=== PATIENT | male | born 1950 | race Caucasian/White ===

== ENCOUNTER 2018-08-04 15:03 | Emergency (ER) | payer OTHER ==
--- OUTSIDE RECORDS SUMMARY | 2018-08-04 15:19 | XMS REPORT | Continuity of Care Document ---
:1950 Author Organization Interface Problems Problem Status Onset Classification Date Comments Source Date Reported N40.1 Active 03/08/19 [place] [facility] Elevated 10/09/19 04/22/2018 [facility] prostate 18 [place] specific antigen [PSA] R97.20 - Active 09/06/19 [facility] ELEVATED 18 [place] PROSTATE SPECIFIC ANT BPH associated Active Problem 07/26/2018 Medical with nocturia Group, [facility] [place] Acute gout Resolved Problem 07/26/2018 Medical Group, [facility] [place] High blood Resolved Problem 07/26/2018 Medical pressure Group, [facility] [place] ED (<span Active Problem 07/26/2018 Medical ID="[id number] Group, 9">Confirmed</s [facility] [place] briseno>) BPH (<span Active Problem 07/26/2018 Medical ID="[id number] Group, 7">Confirmed</s [facility] [place] briseno>) Back pain, Active Problem 07/26/2018 Medical chronic Group, [facility] [place] GERD (<span Active Problem 07/26/2018 Medical ID="[id number] Group, 1">Confirmed</s [facility] [place] briseno>) Morbid obesity Active Problem 07/26/2018 Medical Group, [facility] [place] Motion sickness Active Problem 07/26/2018 Medical Group, [facility] [place] Prostatitis Active Problem 07/26/2018 Medical Group, [facility] [place] Elevated PSA Active Problem 07/26/2018 Medical Group, [facility] [place] Apnea, sleep Active Problem 07/26/2018 Medical Group, [facility] [place] Benign 04/22/2018 [facility] prostatic [place] hyperplasia without lower urinary tract symptoms Obstructive and 04/22/2018 [facility] reflux [place] uropathy, unspecified Medications Medication Details Route Status Patient Ordering Order Source Instructions Provider Date Finasteride 5 MG 5 mg=1 tab, Active Oral Tablet PO, Daily, # 2018 Medical [Proscar] 30 tab, 11 Group Refill(s), Pharmacy: [facility] Sulfamethoxazole 1 tab, PO, No 01/06/ 800 MG / BID, X 14 day, Longer 2017 Medical Trimethoprim 160 # 28 tab, 0 Active Group MG Oral Tablet Refill(s), [Bactrim] Pharmacy: [facility] Ciprofloxacin 500 500 mg=1 tab, No 10/10/ MG Oral Tablet PO, Q12H, X 3 Longer 2017 Medical [Cipro] day, # 6 tab, Active Group 0 Refill(s), Pharmacy: [facility] Sulfamethoxazole 1 tab, PO, Active 08/24/ MH 800 MG / BID, X 14 day, 2018 Medical Trimethoprim 160 # 28 tab, 0 Group MG Oral Tablet Refill(s) [Bactrim] Fish Oil PO, 0 Active Refill(s) 2016 Medical Group Vitamin B12 0 Refill(s) Active 2016 Medical Group Uloric PO, Daily, 0 Active Refill(s) 2016 Medical Group Allopurinol 0 Refill(s) Active 2016 Medical Group Celebrex PO, 0 Active Refill(s) 2016 Medical Group Allergies, Adverse Reactions, Alerts Substance Category Reaction Severity Reaction Status Date Comments Source type Reported No Known Assertion Drug Medication allergy Medical Allergies Group Immunizations Immunization Date Site Status Last Updated Comments Source Given pneumococcal Right completed [facility] 13-valent 9 Deltoid Group, vaccine [facility] [place] Results Order Results Value Reference Date Interpretation Comments Source Name Range Prostate Prostate PROCEDURE: MRI PELVIS (PROSTATE MRI) WITH AND WITHOUT IV CONTRAST 10/03/2017 AT 1115 HOURS. 10/03 - [facility] w/wo w/wo /2017 - [place] contrast contrast MRI MRI CLINICAL INDICATION : Elevated PSA. Benign prostatic hypertrophy with 2 episodes of gross hematuria. Reported several past negative biopsies. IPSS: 16/ 4. Read by: Jeromy Briggs MD Dictated Date/time: 10/03/17 16:01 Electronically Signed by: Jeromy Briggs MD 10/05/17 11:48 FINAL REPORT PSA: 4.68 ng/mL (Date: 01/31/2017); previously 6.8 (unknown date). PROSTATE BIOPSY/SURGERY?: Reported several negative biopsies. Greenlight laser procedure on June 2013. COMPARISON STUDIES: None relevant. ADMINISTERED CONTRAST: 20 cc of Dotarem intravenously. TECHNIQUE: Using a phased array coil small [id number] imaging of the prostate was performed using the following sequences; Multiplanar T1 and T2 LIZ, axial DWI SENSE / ADC (b values=0, 500 \\T\\1000) and dynamic contrast-enhanced (DCE) axial 3-D T1 weighted FFE with IV contrast. Using a large [id number], the entire pelvis to the level of the aortic bifurcation was imaged. Prostate gland segmentation with reg ion of interest time curve analysis was performed with the use of the workstation. FINDINGS: PROSTATE SIZE: 5.6 x 5.2 x 6.3 cm; VOLUME: 86 cc CENTRAL GLAND: Transitional stromal hypertrophy with multiple encapsulated BPH nodules. What is believed to represent a protruding 6 mm BPH nodule is seen arising at the right posterolateral transitiona l/peripheral zone interface approximately 8 o'clock position with moderate ADC hypointensity, mild T2 hypointensity and isointense DWI signal. Otherwise no restricted diffusion or suspicious enhancement. PERIPHERAL ZONE: Predominant T2 hyperintense signal with faint radially oriented bands of T2 hypointensity along the left posterior peripheral zone. Probably protruding 6 cm right posterolateral BPH noted into a peripheral zone as described above. ANTERIOR FIBROMUSCULAR STROMA: Unremarkable. SEMINAL VESICLES: Unremarkable. EXTRA-CAPSULAR SOFT TISSUES: Unremarkable. BLADDER: No filling defects or diverticula. Trabeculated wall. LYMPH NODES: No adenopathy. BONES: Moderate severe lumbosacral facet arthropathy and mild bilateral SI joint osteoarthritis. Variegated bone marrow signal, presumably from red marrow conversion. No destructive lesion. OTHER FINDINGS: No inguinal hernia or adenopathy. No free fluid. IMPRESSION: 1. Prostatic hypertrophy with numerous encapsulated BPH nodules and probable 6 mm protruding BPH nodule into the right posterolateral peripheral zone. 2. PI-RADS Category 3. 3. Mild chronic obstructive uropathy. 4. No adenopathy or free fluid. 5. Polyarticular degenerative change as described. __ PIRADSTM v2 assessment uses a 5 point scale based on the likelihood ( probability) that a combination of mpMRI findings on T2W, DWI, and DCE correlates with the presence of a clinically significant cancer for each lesion in the prostate gland. PIRADSTM v2 ASSESSMENT CATEGORIES: PIRADS 1 Very low (clinically significant cancer is highly unlikely to be present). PIRADS 2 Low (clinically significant cancer is unlikely to be present). PIRADS 3 Intermediate (the presence of clinically significant cancer is equivocal). PIRADS 4 High (clinically significant cancer is likely to be present). PIRADS 5 Very high (clinically significant cancer is highly likely to be present). NOTE: Assignment of a PIRADSTM v2 Assessment Category should be based on mpMRI findings only and should not incorporate other factors such as serum prostate specific antigen (PSA), digital rectal exam, clinical history, or choice of treatment. Although biopsy should be considered for PIRADS 4 or 5, but not for PIRADS 1 or 2, PIRADSTM v2 does not include recommendations for management, as these must ta ke into account other factors besides the MRI findings, including laboratory/clinical history and local preferences, expertise and standards of care. Thus, for findings with PIRADS Assessment Category 2 or 3, biopsy may or may not be appropriate, depending on factors other than mpMRI alone. SL: [id number] Vital Signs Vital Sign Value Date Comments Source Weight 113.182 01/06/2018 Medical Group BMI Calculated 35.8 01/06/2018 Medical Group Height 177.8 cm 01/06/2018 Medical Group Systolic (mm Hg) 134 01/06/2018 Medical Group Diastolic (mm Hg) 82 01/06/2018 [facility] Heart Rate 68 01/06/2018 Medical Group Weight 107.273 10/24/2017 Medical Group BMI Calculated 33.93 10/24/2017 Medical Group Height 177.8 cm 10/24/2017 Medical Group Systolic (mm Hg) 106 10/24/2017 Medical Group Diastolic (mm Hg) 70 10/24/2017 [facility] Heart Rate 87 10/24/2017 Medical Group Weight 90.909 01/31/2017 Medical Group BMI Calculated 28.76 01/31/2017 Medical Group Height 177.8 cm 01/31/2017 Medical Group Systolic (mm Hg) 132 01/31/2017 Medical Group Diastolic (mm Hg) 80 01/31/2017 Medical Group Encounters Location Location Encounter Encounter Reason Attending ADM DC Status Source Details Type Number For Provider Date Date Visit Outpatient [id number] CRUZ 01/31 [facility] [place] [facility] Outpatient [id number] Cruz 01/31 02/01 [facility] [place] [facility] Outpatient [id number] CRUZ 08/24 [facility] [place] [facility] Outpatient [id number] Cruz 08/24 08/25 [facility] [place] [facility] Outpt Diag [id number] Cruz 10/03 10/04 [facility] [place] [facility] [place] [facility] [id number] CRUZ10/24 [facility] [place] Outpatient [id number] CYSTOS 10/24 [facility] [id number] Cruz 10/24 10/25 [facility] [place] [facility] Outpatient [id number] Cruz 10/24 10/25 [facility] [place] [facility] Outpatient [id number] CRUZ 01/06 [facility] [place] [facility] Outpatient [id number] Cruz 01/06 01/07 [facility] [place] [facility] Outpatient [id number] CRUZ03/20 [facility] [place] Outpatient [id number] CRUZ 04/20 [facility] [id number] Cruz 04/20 04/20 [facility]rology [facility] [place] [facility] Outpatient [id number] CRUZ 05/01 [facility] [id number] Cruz 05/01 05/02 [facility] /2018 [facility] [place] [facility] Between [id number] 05/02 05/03 Urology Visit /2018 [facility] [place] [facility] Procedures Procedure Code Date Perfomer [place] [address] Medical post-voiding residual 8 Group urine and/or bladder capacity by ultrasound, non-imaging Cystourethroscopy 76916 Medical (separate procedure) 8 Group Complex uroflowmetry 53221 Medical (eg, calibrated 8 Group electronic equipment) Procedure on knee [id number] Medical Group Procedure on shoulder [id number] Medical Group Colonoscopy [id number] Medical Group Procedure on knee [id number] [facility] [place] Procedure on shoulder [id number] [facility] [place] Colonoscopy [id number] [facility] [place]
--- OUTSIDE RECORDS SUMMARY | 2018-08-04 15:19 | XMS REPORT | Summary of Care ---
:1950 Author Organization [facility] [place] Address [address] [place] [address], [address] [place] [address]- Encounter HQ Rivera_cody(CHRISTIE) [id number] Date(s): 01/31/17 - 01/31/17 [facility] [place] [address] [place] [address] [place] [address] [phone] Discharge Disposition: Home or Self Care Attending Physician: Cruz Santoro MD Referring Physician: Cruz Santoro MD Vital Signs Most recent to oldest [Reference Range]: 1 Height 177.8 cm (01/31/17 9:50 AM) Blood Pressure [90-140/60-90 mmHg] 132/80 mmHg (01/31/17 9:50 AM) Weight 90.909 kg (01/31/17 9:50 AM) Body Mass Index 28.76 m2 (01/31/17 9:50 AM) Problem List Condition Effective Dates Status Health Status Informant BPH associated with Active nocturia(Confirmed) Acute gout(Confirmed) Resolved High blood pressure(Confirmed) Resolved ED (erectile dysfunction)(Confirmed) Active Allergies, Adverse Reactions, Alerts Substance Reaction Severity Status NKDA Active Medications allopurinol 0 Refill(s) Start Date: 01/31/17 Status: OrderedCeleBREX PO, 0 Refill(s) Start Date: 01/31/17 Status: OrderedFish Oil PO, 0 Refill(s) Start Date: 01/31/17 Status: OrderedUloric PO, Daily, 0 Refill(s) Start Date: 01/31/17 Status: OrderedVitamin B12 0 Refill(s) Start Date: 01/31/17 Status: Ordered Results No data available for this section Immunizations No data available for this section Procedures Procedure Date Related Diagnosis Body Site Procedure on knee Procedure on shoulder Social History Social History Type Response Smoking Status Light tobacco smoker; Exposure to Tobacco Smoke None; Cigarette Smoking Last 365 Days No; Reg Smoking Cessation Counseling No Assessment and Plan No data available for this section
--- OUTSIDE RECORDS SUMMARY | 2018-08-04 15:20 | XMS REPORT | Summary of Care ---
:1950 Author Organization [facility] [place] Address [address] [place] [address] [place] [address]- Encounter HQ Encntr_alimarin(FIN) [id number] Date(s): 10/24/17 - 10/24/17 [facility] [place] [address] [place] [address] [facility] [address] [place] [address] [phone] Discharge Disposition: Home or Self Care Referring Physician: Cruz Santoro MD Vital Signs No data available for this section Problem List Condition Effective Dates Status Health Status Informant BPH (benign prostatic Active hyperplasia)(Confirmed) BPH associated with Active nocturia(Confirmed) Back pain, chronic(Confirmed) Active GERD (gastroesophageal reflux Active disease)(Confirmed) Acute gout(Confirmed) Resolved High blood pressure(Confirmed) Resolved ED (erectile dysfunction)(Confirmed) Active Morbid obesity(Confirmed) Active Motion sickness(Confirmed) Active Prostatitis(Confirmed) Active Elevated PSA(Confirmed) Active Apnea, sleep(Confirmed) Active Allergies, Adverse Reactions, Alerts Substance Reaction Severity Status NKDA Active Medications No data available for this section Results No data available for this section Immunizations Given and Recorded Vaccine Date Status Refusal Reason pneumococcal 13-valent vaccine 03/14/18 Given Procedures Procedure Date Related Diagnosis Body Site Status Colonoscopy Completed Procedure on knee Completed Procedure on shoulder Completed Social History Social History Type Response Smoking Status Light tobacco smoker; Exposure to Tobacco Smoke None; Cigarette Smoking Last 365 Days No; Reg Smoking Cessation Counseling Yes entered on: 03/20/18 Assessment and Plan No data available for this section
--- OUTSIDE RECORDS SUMMARY | 2018-08-04 15:20 | XMS REPORT | Summary of Care ---
:1950 Author Organization [facility] [place] Address [address] [place] [address], [address] [place] [address]- Encounter HQ Encntr_alimarin(FIN) [id number] Date(s): 08/24/17 - 08/24/17 [facility] [place] [address] [place] [address] [place] [address] [phone] Discharge Disposition: Home or Self Care Attending Physician: Cruz Santoro MD Referring Physician: Cruz Santoro MD Vital Signs No data available for this section Problem List Condition Effective Dates Status Health Status Informant BPH associated with Active nocturia(Confirmed) Acute gout(Confirmed) Resolved High blood pressure(Confirmed) Resolved ED (erectile dysfunction)(Confirmed) Active Prostatitis(Confirmed) Active Elevated PSA(Confirmed) Active Allergies, Adverse Reactions, Alerts Substance Reaction Severity Status NKDA Active Medications Bactrim DS 800 mg- 160 mg oral tablet 1 tab, PO, BID, X 14 day, # 28 tab, 0 Refill(s) Start Date: 08/24/17 Stop Date: 09/07/17 Status: Ordered Results No data available for this section Immunizations No data available for this section Procedures Procedure Date Related Diagnosis Body Site Status Procedure on knee Completed Procedure on shoulder Completed Social History Social History Type Response Smoking Status Light tobacco smoker; Exposure to Tobacco Smoke None; Cigarette Smoking Last 365 Days No; Reg Smoking Cessation Counseling No entered on: 08/24/17 Assessment and Plan No data available for this section
--- OUTSIDE RECORDS SUMMARY | 2018-08-04 15:20 | XMS REPORT | Summary of Care ---
:1950 Author Organization [facility] [place] Address [address] [place] [address] [place] [address]- Encounter HQ William(CHRISTIE) [id number] Date(s): 10/24/17 - 10/24/17 [facility] [place] [address] [place] [address] [place] [address] [phone] Discharge Disposition: Home or Self Care Attending Physician: Cruz Santoro MD Referring Physician: Cruz Santoro MD Vital Signs Most recent to oldest [Reference Range]: 1 Height 177.8 cm (10/24/17 10:40 AM) Blood Pressure [90-140/60-90 mmHg] 106/70 mmHg (10/24/17 10:40 AM) Peripheral Pulse Rate [60-100 bpm] 87 bpm (10/24/17 10:40 AM) Weight 107.273 kg (10/24/17 10:40 AM) Body Mass Index 33.93 m2 (10/24/17 10:40 AM) Problem List Condition Effective Dates Status [...] Substance Reaction Severity Status NKDA Active Medications Cipro 500 mg oral tablet 500 mg=1 tab, PO, Q12H, X 3 day, # 6 tab, 0 Refill(s), Pharmacy: [facility] Start Date: 10/10/17 Stop Date: 10/13/17 Status: Completed Results No data available for this section Immunizations Given and Recorded Vaccine Date Status Refusal Reason pneumococcal 13-valent vaccine 03/14/18 Given Procedures Procedure Date Related Diagnosis Body Site Status Complex uroflowmetry (eg, calibrated 10/24/17 Completed electronic equipment) Cystourethroscopy (separate procedure) 10/24/17 Completed Measurement of post-voiding residual 10/24/17 Completed urine and/or bladder capacity by ultrasound, non-imaging Colonoscopy Completed Procedure on knee Completed Procedure on shoulder Completed Social History Social History Type Response Smoking Status Light tobacco smoker; Exposure to Tobacco Smoke None; Cigarette Smoking Last 365 Days No; Reg Smoking Cessation Counseling Yes entered on: 03/20/18 Assessment and Plan No data available for this section
--- OUTSIDE RECORDS SUMMARY | 2018-08-04 15:20 | XMS REPORT | Summary of Care ---
:1950 Author Organization [facility] [place] Address [address] [place], [place] [address]- Encounter HQ Encntr_alias(FIN) [id number] Date(s): 10/03/17 - 10/03/17 [facility] [place] [id number] [place] [address]- Discharge Disposition: Home or Self Care Attending [...]
--- OUTSIDE RECORDS SUMMARY | 2018-08-04 15:20 | XMS REPORT | Summary of Care ---
:1950 Author Organization [facility] [place] Address [address] [place] [address] [place] [address]- Encounter HQ Costantr_cody(FIN) [id number] Date(s): 05/01/18 - 05/01/18 [facility] [place] [address] [place] [address] [facility] [address] [place] [address] [phone] Discharge Disposition: Home or Self Care Attending [...]
--- OUTSIDE RECORDS SUMMARY | 2018-08-04 15:20 | XMS REPORT | Summary of Care ---
:1950 Author Organization [facility] [place] Address [address] [place] [address] [place] [address]- Encounter HQ Costantr_cody(FIN) [id number] Date(s): 04/20/18 - 04/20/18 [facility] [place] [address] [place] [address] [facility] [address] [place] [address] [phone] Attending Physician: Cruz Santoro MD Referring Physician: [...]
--- OUTSIDE RECORDS SUMMARY | 2018-08-04 15:20 | XMS REPORT | Summary of Care ---
:1950 Author Organization [facility] [place] Address [address] [place] [address] [place] [address]- Encounter HQ Encntr_alias(FIN) [id number] Date(s): 05/02/18 - 05/03/18 [facility] [place] [address] [place] [address] [facility] [address] [place] [address] [phone] Vital Signs No data available for this [...]
--- OUTSIDE RECORDS SUMMARY | 2018-08-04 15:20 | XMS REPORT | Summary of Care ---
:1950 Author Organization [facility] [place] Address [address] [place] [facility] [place] [address]- Care Team Providers Name Role Phone Myla Kennedy Primary Care Physician Encounter HQ Sabinemarin(CHRISTIE) [id number] Date(s): 01/06/18 - 01/06/18 [facility] [place] [address] [place] [facility] [address] [place] [address]- [phone] Discharge Disposition: Home or Self Care Attending Physician: Cruz Santoro MD Referring Physician: Cruz Santoro MD Vital Signs Most recent to oldest [Reference Range]: 1 Height 177.8 cm (01/06/18 9:30 AM) Blood Pressure [90-140/60-90 mmHg] 134/82 mmHg (01/06/18 9:30 AM) Peripheral Pulse Rate [60-100 bpm] 68 bpm (01/06/18 9:30 AM) Weight 113.182 kg (01/06/18 9:30 AM) Body Mass Index 35.8 m2 (01/06/18 9:30 AM) Problem List Condition Effective Dates Status Health Status Informant BPH (benign prostatic Active hyperplasia)(Confirmed) BPH associated with Active nocturia(Confirmed) Back pain, chronic(Confirmed) Active GERD (gastroesophageal reflux Active disease)(Confirmed) Acute gout(Confirmed) Resolved High blood pressure(Confirmed) Resolved ED (erectile dysfunction)(Confirmed) Active Morbid obesity(Confirmed) Active Motion sickness(Confirmed) Active Prostatitis(Confirmed) Active Elevated PSA(Confirmed) Active Apnea, sleep(Confirmed) Active Allergies, Adverse Reactions, Alerts No Known Medication Allergies Medications Bactrim DS 800 mg- 160 mg oral tablet 1 tab, PO, BID, X 14 day, # 28 tab, 0 Refill(s), Pharmacy: [facility] Start Date: 01/06/18 Stop Date: 01/20/18 Status: CompletedProscar 5 mg oral tablet 5 mg=1 tab, PO, Daily, # 30 tab, 11 Refill(s), Pharmacy: [facility] Start Date: 01/06/18 Status: Ordered Results No data available for [...]
--- OUTSIDE RECORDS SUMMARY | 2018-08-04 15:21 | XMS REPORT | Encounter Summary ---
:1950 Author Care Team Providers Name Role Phone Myla Kennedy MD Primary Care Provider [phone] Reason for Visit POST OP Instructions 1. Shoulder pain shoulder pain: care instructions Discussion Note: None recorded. Plan of Care Reminders Provider Appointments None recorded. Lab None recorded. Referral None recorded. Procedures None recorded. Surgeries None recorded. Imaging None recorded. Medications Name Start Date acetaminophen 300 mg-codeine 30 mg tablet Celebrex Diovan finasteride 5 mg tablet sulfamethoxazole 800 mg-trimethoprim 160 mg tablet valsartan 320 mg-hydrochlorothiazide 25 mg tablet Medications Administered None recorded. Vitals Height Weight BMI Blood Pressure 70 in 245 lbs 35.2 kg/m2 125/80 mm[Hg] Lab Results Date Name Specimen Result Interpretation Description Value Range Status Address 02/06/2018 CBC W/ Auto Normal White Blood 7.3 4.0-12.3 Final [place] Diff Count K/uL K/uL [facility] (Lab): [address] [place] [address] Normal Red Blood 4.78 3.80-5.80 Final [place] Count M/uL M/uL [facility] (Lab): [address] [place] [address] Normal Hemoglobin 15.5 11.67-17. Final [place] g/dL 22 g/dL [facility] (Lab): [address] [place] [address] Normal Hematocrit 43.8 35.0-51.0 Final [place] % % [facility] (Lab): [address] [place] [address] Normal Mean 91.6 78-96 fL Final [place] Corpuscular fL [facility] Volume [facility] (Lab): [address] [place] [address] Normal Mean 32.4 26.8-33.4 Final [place] Corpuscular pg pg [facility] Hemoglobin [facility] (Lab): [address] [place] [address] Normal Mean 35.4 32.3-36.7 Final [place] Corpuscular g/dL g/dL [facility] (Lab): [address] [place] [address] Normal Red Cell 12.4 11.6-15.4 Final [place] Distribution % % [facility] (Lab): [address] [place] [address] Normal Platelet 215 115-328 Final [place] Count K/uL K/uL [facility] (Lab): [address] [place] [address] Low Mean Platelet 7.4 8.4-11.8 Final [place] Volume fL fL [facility] (Lab): [address] [place] [address] Normal Neutrophils % 51.7 44.7-82.4 Corrected [place] % % [facility] (Lab): [address] [place] [address] Normal Lymphocyte% 31.2 10.0-50.0 Final [place] % % [facility] (Lab): [address] [place] [address] Normal Rusk % 10.2 3.9-13.4 Final [place] % % [facility] (Lab): [address] [place] [address] Normal Eos % 4.9 % 0.0-6.43 Final [place] % [facility] (Lab): [address] [place] [address] High Basophil % 2.1 % 0.0-0.72 Final [place] % [facility] (Lab): [address] [place] [address] 02/06/2018 Differential Normal Neutrophils Incomplete [place] Panel, Blood [facility] (Lab): [address] [place] [address] Normal Band Incomplete [place] [facility] (Lab): [address] [place] [address] Normal Lymphocyte Incomplete [place] [facility] (Lab): [address] [place] [address] Normal Atypical Incomplete [place] Lymph [facility] (Lab): [address] [place] [address] Normal Monocyte Incomplete [place] [facility] (Lab): [address] [place] [address] Normal Platelet Incomplete [place] Estimate [facility] (Lab): [address] [place] [address] Normal Platelet Incomplete [place] Morphology [facility] (Lab): [address] [place] [address] Normal Hypochromasia Incomplete [place] [facility] (Lab): [address] [place] [address] 02/06/2018 BMP, Serum or High Glucose 123 82-115 Final [place] Plasma mg/dL mg/dL [facility] (Lab): [address] [place] [address] Normal Blood Urea 23 8-23 Final [place] Nitrogen mg/dL mg/dL [facility] (Lab): [address] [place] [address] Normal Osmolality 285 280-300 Final [place] Calculated, [facility] Serum [facility] (Lab): [address] [place] [address] Normal Creatinine 1.2 0.70-1.20 Final [place] mg/dL mg/dL [facility] (Lab): [address] [place] [address] Normal Glomerular >60.0 Final [place] Filtration 0 [facility] Rate [facility] (Lab): [address] [place] [address] Normal BUN/creatinin 19.2 12-20 Final [place] e Ratio [facility] (Lab): [address] [place] [address] Normal Sodium Level 140 135-145 Final [place] mmol/ mmol/L [facility] (Lab): [address] [place] [address] Normal Potassium 4.6 3.5-5.2 Final [place] Level mmol/ mmol/L [facility] (Lab): [address] [place] [address] Normal Chloride 102 98-108 Final [place] Level mmol/ mmol/L [facility] (Lab): [address] [place] [address] Normal Co2 26 21-32 Final [place] mmol/ mmol/L [facility] (Lab): [address] [place] [address] Normal Anion Gap 16.6 12-20 Final [place] mEq/L mEq/L [facility] (Lab): [address] [place] [address] Normal Calcium Level 9.8 8.8-10.2 Final [place] mg/dL mg/dL [facility] (Lab): [address] [place] [address] Allergies Code Code System Name Reaction Severity Status Onset NKDA Problems Name Status Onset Date Source Serous Otitis Media Active Encounter Sinusitis Active Encounter Nasal Obstruction Active Encounter Headache Active Encounter Hypertrophy of Nasal Turbinates Active Encounter Procedures None recorded. Vaccine List None recorded. Social History Smoking Status Former Smoker (1 PPD) Past Encounters 03/02/2018 Shoulder Pain Reinaldo Singer MD: [address] [facility] [address], [place] [address], Ph. [phone] History of Present Illness None recorded. Review of Systems None recorded. Physical Exam Post-Op Reported By: Patient Post Operative Exam: General Appearance: wound clean and dry, no swelling, no tenderness, no warmth, appropriate range of motion, neurovascular intact
--- OUTSIDE RECORDS SUMMARY | 2018-08-04 15:21 | XMS REPORT | Summary of Care ---
:1950 Author Organization [facility] Address [address] [place], [place] [address]- Encounter HQ Encntr_alias(FIN) [id number] Date(s): 10/03/17 - 10/03/17 [facility] [address] [place] [id number] Encounter Diagnosis Elevated prostate specific antigen [PSA] (Final) - 10/07/17 Benign prostatic hyperplasia without lower urinary tract symptoms (Final) - Obstructive and reflux uropathy, unspecified (Final) - Discharge Disposition: Home or Self Care Attending [...]
--- OUTSIDE RECORDS SUMMARY | 2018-08-04 15:21 | XMS REPORT | Encounter Summary ---
:1950 Author Care Team Providers Name Role Phone Myla Kennedy MD Primary Care Provider [phone] Reason for Visit Follow Up Visit Instructions 1. Full thickness rotator cuff tear rotator cuff injury: care instructions Discussion Note: None recorded. Plan of Care Reminders Provider Appointments None recorded. Lab None recorded. Referral None recorded. Procedures None recorded. Surgeries None recorded. Imaging None recorded. Medications Name Start Date acetaminophen 300 mg-codeine 30 mg tablet Celebrex ciprofloxacin 500 mg tablet Diovan finasteride 5 mg tablet sulfamethoxazole 800 mg-trimethoprim 160 mg tablet tramadol 50 mg tablet valsartan 320 mg-hydrochlorothiazide 25 mg tablet Medications Administered None recorded. Vitals Height Weight BMI Blood Pressure 70 in 245 lbs 35.2 kg/m2 125/80 mm[Hg] Lab Results None recorded. Allergies Code Code System Name Reaction Severity Status Onset NKDA Problems Name Status Onset Date Source Serous Otitis Media Active Encounter Sinusitis Active Encounter Nasal Obstruction Active Encounter Headache Active Encounter Hypertrophy of Nasal Turbinates Active Encounter Procedures None recorded. Vaccine List None recorded. Social History Smoking Status Former Smoker (1 PPD) Past Encounters 04/18/2018 Full Thickness Rotator Cuff Tear Reinaldo Singer MD: [address] [facility] [address], [place] [address], Ph. [phone] 03/21/2018 Degenerative Joint Disease of Shoulder Region Reinaldo Singer MD: [address] [facility] [address], [place] [address], Ph. [phone] History of Present Illness None recorded. Review of Systems None recorded. Physical Exam Post-Op Reported By: Patient Post Operative Exam: General Appearance: wound clean and dry, no swelling, no tenderness, no warmth, appropriate range of motion, neurovascular intact; will refer p.t
--- OUTSIDE RECORDS SUMMARY | 2018-08-04 15:21 | XMS REPORT | Encounter Summary ---
:1950 Author Care Team Providers Name Role Phone Myla Kennedy MD Primary Care Provider [phone] Reason for Visit Follow Up Visit Instructions 1. Degenerative joint disease of shoulder region physical therapy referral Discussion Note: None recorded.Patient educational handouts: No information available. Plan of Care Reminders Provider Appointments None recorded. Lab None recorded. Referral Physical Therapy Referral 03/21/2018 Procedures None recorded. Surgeries None recorded. Imaging None recorded. Medications Name Start Date acetaminophen 300 mg-codeine 30 mg tablet Celebrex ciprofloxacin 500 mg tablet Diovan finasteride 5 mg tablet sulfamethoxazole 800 mg-trimethoprim 160 mg tablet tramadol 50 mg tablet valsartan 320 mg-hydrochlorothiazide 25 mg tablet Medications Administered None recorded. Vitals Height Blood Pressure 70 in 125/80 mm[Hg] Lab Results None recorded. Allergies Code Code System Name Reaction Severity Status Onset NKDA Problems Name Status Onset Date Source Serous Otitis Media Active Encounter Sinusitis Active Encounter Nasal Obstruction Active Encounter Headache Active Encounter Hypertrophy of Nasal Turbinates Active Encounter Procedures None recorded. Vaccine List None recorded. Social History Smoking Status Former Smoker (1 PPD) Past Encounters 03/21/2018 Degenerative Joint Disease of Shoulder Region Reinaldo Singer MD: [address] [facility] [address], [place] [address], Ph. [phone] 03/02/2018 Shoulder Pain Reinaldo Singer MD: [address] [facility] [address], [place] [address], Ph. [phone] History of Present Illness None recorded. Review of Systems None recorded. Physical Exam Post-Op Reported By: Patient Post Operative Exam: General Appearance: wound clean and dry, no swelling, no tenderness, no warmth, appropriate range of motion, neurovascular intact; will refer p.t
--- OUTSIDE RECORDS SUMMARY | 2018-08-04 15:21 | XMS REPORT ---
:1950 Author Organization [facility] Address [address] [place] [address] [address] [place] [address] Care Team Providers Name Role Phone Unavailable Unavailable Unavailable Problems This patient has no known problems. Allergies, Adverse Reactions, Alerts This patient has no known allergies or adverse reactions. Medications This patient has no known medications. Encounters Start End Encounter Admission Attending Care Care Encounter Date/Time Date/Time Type Type Clinicians Facility Department ID 2018-03-13 Inpatient [facility] [id number] 09:10:00
--- OUTSIDE RECORDS SUMMARY | 2018-08-04 15:21 | XMS REPORT | Continuity of Care Document ---
:1950 Author Organization [facility] Address [address] [place] [address] Phone Unavailable Care Team Providers Name Role Phone JEFERSON MUSA MD Primary Care Physician Insurance Providers Guarantor Doe Hager Address [address] [place] [address] Email [email or web address] Payer Medicare Policy Number [id number] Subscriber's Name Doe Hager Relationship Self / Same As Patient Group Number NA Group Name NA Payer [facility] Claims Department Policy Number [id number] Subscriber's Name Doe Hgaer Relationship Self / Same As Patient Group Number NA Group Name NA Advance Directives Directive Response Recorded Date/Time Patient/Family Given Education Material R/T Directives? No 03/30/18 11:06am Problems Medical Problem Onset Date Status Degenerative joint disease, shoulder, left Unknown Left shoulder pain Unknown Medications Current Home Medications Medication Dose Units Route Directions Days Qty Instructions Start Date Celecoxib 200 Mg ORAL Once Daily (Celebrex *) 200 At Bedtime Mg Cap Cetirizine Hcl 10 Mg ORAL Daily As (Zyrtec *) 10 Mg Needed as Tab needed for Allergies Cyanocobalamin 1 Tab SUBLINGUAL Daily 30 30 (Vitamin B-12 Days Tablet 1,000 Mcg) 1,000 Mcg Sub Finasteride 5 Mg ORAL Daily (Proscar 5 Mg*) 5 Mg Tab Naproxen Sodium 2 Tab ORAL Daily (Naproxen Sodium 220 Mg *) 220 Mg Cap [place]-3 Fatty 1 Cap ORAL Daily 30 30 Cap Acids (Fish Oil Days 1,000 Mg) 1,000 Mg Cap Valsartan-Hydroch 1 Tab ORAL Once Daily lorothiazide * (Valsartan/Hctz 320/25 Mg *) 1 Tab Tab Social History Social History Response Recorded Date/Time Onset Date Status Problem Hx Alcohol Use Y - DAILY ALCOHOL 02/06/2018 9:38am Not Applicable Not Applicable Hospital Discharge Instructions No hospital discharge instruction information available. Plan of Care Prescriptions See Medication Section Functional Status No functional status information available. Allergies, Adverse Reactions, Alerts No known allergies. Immunizations No immunization information available. Vital Signs Acute Vital Signs Vital Response Date/Time Blood Pressure 128/80 mm Hg 02/14/2018 12:05pm Pulse Pulse Rate (adult) 66 beats per minute (60 - 100) 02/14/2018 12:05pm Respiratory Rate 14 breaths per minute (10 - 24) 02/14/2018 12:05pm Temperature Source Temporal Artery Scan 02/14/2018 12:05pm Results Laboratory Results Test Name Result Units Flags Reference Collection Result Comments Date/Time Date/Time White Blood 7.3 K/ul 4.0-12.3 02/06/2018 02/06/2018 Count 10:22am 10:30am Red Blood Count 4.78 M/ul 3.80-5.80 02/06/2018 02/06/2018 10:22am 10:30am Hemoglobin 15.5 g/dl 11.67-17.22 02/06/2018 02/06/2018 10:22am 10:30am Hematocrit 43.8 % 35.0-51.0 02/06/2018 02/06/2018 10:22am 10:30am Mean 91.6 fl 78-96 02/06/2018 02/06/2018 Corpuscular 10:22am 10:30am Volume Mean 32.4 pg 26.8-33.4 02/06/2018 02/06/2018 Corpuscular 10:22am 10:30am Hemoglobin Mean 35.4 g/dl 32.3-36.7 02/06/2018 02/06/2018 Corpuscular 10:22am 10:30am Hemoglobin Concent Red Cell 12.4 % 11.6-15.4 02/06/2018 02/06/2018 Distribution 10:22am 10:30am Width Platelet Count 215 K/ul 115-328 02/06/2018 02/06/2018 10:22am 10:30am Mean Platelet 7.4 fl L 8.4-11.8 02/06/2018 02/06/2018 Volume 10:22am 10:30am Neutrophils (%) 51.7 % 44.7-82.4 02/06/2018 02/06/2018 (Auto) 10:22am 10:30am Lymphocytes (%) 31.2 % 10.0-50.0 02/06/2018 02/06/2018 (Auto) 10:22am 10:30am Monocytes (%) 10.2 % 3.9-13.4 02/06/2018 02/06/2018 (Auto) 10:22am 10:30am Eosinophils (%) 4.9 % 0.0-6.43 02/06/2018 02/06/2018 (Auto) 10:22am 10:30am Basophils (%) 2.1 % H 0.0-0.72 02/06/2018 02/06/2018 (Auto) 10:22am 10:30am Random Glucose 123 mg/dL H 82-115 02/06/2018 02/06/2018 10:22am 11:00am Blood Urea 23 mg/dL 8-02/06/2018 02/06/2018 Nitrogen 10:22am 11:00am Serum 285 280-300 02/06/2018 02/06/2018 Osmolality 10:22am 11:00am Creatinine 1.2 mg/dL 0.70-1.20 02/06/2018 02/06/2018 10:22am 11:00am Glomerular > 60.00 02/06/2018 02/06/2018 GFR RESULTS ARE REPORTED IN mL/min/1.73m2. Filtration Rate 10:22am 11:00am Calc Normal GFR: >60mL/min Moderately decreased GFR: 30-59 mL/min Severely decreased GFR: 15-29 mL/min Kidney Failure (or Dialysis): <15 mL/min The calculated eGFR is not valid for patients younger than 18 years or older than 75 years. BUN/Creatinine 19.2 12-20 02/06/2018 02/06/2018 Ratio 10:22am 11:00am Sodium Level 140 mmol/L 135-145 02/06/2018 02/06/2018 10:22am 11:00am Potassium Level 4.6 mmol/L 3.5-5.2 02/06/2018 02/06/2018 10:22am 11:00am Chloride Level 102 mmol/L 98-108 02/06/2018 02/06/2018 10:22am 11:00am Carbon Dioxide 26 mmol/L 21-32 02/06/2018 02/06/2018 Level 10:22am 11:00am Anion Gap 16.6 mEq/L 12-20 02/06/2018 02/06/2018 10:22am 11:00am Calcium Level 9.8 mg/dL 8.8-10.2 02/06/2018 02/06/2018 10:22am 11:00am Procedures Procedure Status Date Provider(s) ARTHROSCOP ROTATOR CUFF REPR Completed 02/14/18 JEFERSON MUSA MD SHOULDER ARTHROSCOPY/SURGERY Completed 02/14/18 JEFERSON MUSA MD X-RAY EXAM CHEST 2 VIEWS Completed 02/14/18 COMPLETE CBC W/AUTO DIFF WBC Completed 02/14/18 ROUTINE VENIPUNCTURE Completed 02/14/18 METABOLIC PANEL TOTAL CA Completed 02/14/18 ELECTROCARDIOGRAM TRACING Completed 02/14/18 N BLOCK CONT INFUSE B PLEX Completed 02/14/18 Completed 02/14/18 INJ,PROPOFOL 10MG Completed 02/14/18 Completed 02/14/18 ROPIVACAINE HYDROCHLORIDE 1 MG Completed 02/14/18 ACETAMINOPHEN INJECTION Completed 02/14/18 ANCHOR/SCREW BN/BN, TIS/BN Completed 02/14/18 X-ray of chest, two views Completed 02/06/18 JEFERSON MUSA MD Encounters Encounter Location Arrival/Admit Date Discharge/Depart Date Attending Provider Discharged Jay 04/05/18 9:00am 04/06/18 11:59pm [facility] Registered Jay 02/14/18 6:12am [facility] JEFERSON VOGEL [facility] Recent Diagnosis Degenerative joint disease, shoulder, left Left shoulder pain
--- OUTSIDE RECORDS SUMMARY | 2018-08-04 15:22 | XMS REPORT | Continuity of Care Document ---
:1950 Author Organization [facility] Address [address] [place] [address] Phone Unavailable Care Team Providers Name Role Phone JEFERSON MUSA MD Primary Care Physician Insurance Providers Guarantor Doe Hager Address [address] [place] [address] Email [email or web address] Payer Medicare Policy Number [id number] Subscriber's Name Doe Hager Relationship Self / Same As Patient Group Number NA Group Name NA Payer [facility] Claims Department Policy Number [id number] Subscriber's Name Doe Hager Relationship Self / Same As Patient Group Number NA Group Name NA Advance Directives Directive Response Recorded Date/Time Patient/Family Given Education Material R/T Directives? No 04/13/18 6:16am Problems Medical Problem Onset Date Status Degenerative [...] Sodium 220 Mg *) 220 Mg Cap [place]-3 Fatty 1 Cap ORAL Daily 30 30 [...] Immunizations No immunization information available. Vital Signs No vital sign information available. Results No relevant diagnostic test, laboratory data and/or discharge summary information available. Procedures Procedure Status Date Provider(s) THERAPEUTIC EXERCISES Completed 03/30/18 PT EVAL LOW COMPLEX 20 MIN Completed 03/30/18 SELF CARE MNGMENT TRAINING Completed 03/30/18 MANUAL THERAPY 1/> [facility] Completed 03/30/18 THERAPEUTIC EXERCISES Completed 03/30/18 MANUAL THERAPY 1/> [facility] Completed 03/30/18 THERAPEUTIC EXERCISES Completed 03/30/18 CARRY CURRENT STATUS Completed 03/30/18 CARRY GOAL STATUS Completed 03/30/18 Encounters Encounter Location Arrival/Admit Date Discharge/Depart Date Attending Provider Discharged Daryl 04/13/18 6:17am 05/04/18 11:59pm Tommie MUSA MD [facility] Discharged Daryl 03/30/18 11:06am 04/06/18 11:59pm Tommie MUSA MD Medical [facility]tr
[2018-08-04] MEDS ORDERED: LIDOCAINE 1% MPF 30 ML VIAL ONE (16:00)
[2018-08-04] MEDS ORDERED: TETANUS & DIPHTHERIA TOX,ADULT 0.5 ML VIAL ONE (16:02)
--- NOTE | 2018-08-04 16:32 | ER ---
Nurse's Notes [facility] Name: Doe Helm Age: 68 yrs Sex: Male : 1950 Arrival Date: 08/04/2018 Time: 15:05 Bed 5 Private MD: Diagnosis: Laceration of the Left Lower Leg Presentation: 08/04 15:12 Presenting complaint: Patient states: left leg laceration with a hose clamp. Transition sv of care: patient was not received from another setting of care. Complicating Factors: There are no complicating factors for this patient. Onset of symptoms was August 04, 2018 at 14:00. Initial Sepsis Screen: Does the patient meet any 2 criteria? No. Patient's initial sepsis screen is negative. Does the patient have a suspected source of infection? No. Patient's initial sepsis screen is negative. Care prior to arrival: None. 15:12 Method Of Arrival: Ambulatory sv 15:12 Acuity: FIORDALIZA 3 sv 15:23 Risk Assessment: Do you want to hurt yourself or someone else? Patient reports no tw2 desire to harm self or others. Triage Assessment: 15:12 General: Appears in no apparent distress. uncomfortable, well developed, Behavior is sv calm, cooperative, appropriate for age. Pain: Complains of pain in lateral aspect of left calf Pain currently is 4 out of 10 on a pain scale. Neuro: Level of Consciousness is awake, alert, obeys commands, Oriented to person, place, time, situation, Gait is steady. Respiratory: Respiratory effort is even, unlabored, Respiratory pattern is regular, symmetrical. Derm: Skin is pink, warm \T\ dry. Injury Description: Laceration sustained to lateral aspect of left calf is contaminated, 2.6 to 7.5 cm long, not bleeding, was sustained 1-2 hours ago. is bleeding no active bleeding noted. 15:17 General: Appears in no apparent distress. Behavior is calm, cooperative, appropriate tw2 for age. Pain:. Historical: - Allergies: 15:14 No Known Allergies; sv - PMHx: 15:14 Hypertension; Arthritis; sv - PSHx: 15:14 shoulder; sv - Immunization history:: Last tetanus immunization: < 10 years ago unknown. - Social history:: Smoking status: . - Ebola Screening: : Patient denies travel to an Ebola-affected area in the 21 days before illness onset. Screenin:17 Abuse screen: Denies threats or abuse. Nutritional screening: No deficits noted. tw2 Tuberculosis screening: No symptoms or risk factors identified. Fall Risk None identified. Assessment: 15:21 General: Appears in no apparent distress. Behavior is calm, cooperative, appropriate tw2 for age. Pain: Complains of pain in lateral aspect of left calf. Neuro: Level of Consciousness is awake, alert, obeys commands, Oriented to person, place, time, situation. Cardiovascular: Heart tones S1 S2 Patient's skin is warm and dry. Respiratory: Airway is patent Respiratory effort is even, unlabored, Respiratory pattern is regular, symmetrical, Breath sounds are clear bilaterally. GI: No signs and/or symptoms were reported involving the gastrointestinal system. : No signs and/or symptoms were reported regarding the genitourinary system. EENT: Derm: No signs and/or symptoms reported regarding the dermatologic system. Musculoskeletal: Range of motion: intact in all extremities. Injury Description: Laceration sustained to lateral aspect of left calf is jagged, 2.6 to 7.5 cm long, not bleeding, it appears that underlying tissue is exposed, reports it happening about 1 hr ago. 16:40 Reassessment: Patient appears in no apparent distress at this time. No changes from tw2 previously documented assessment. Patient and/or family updated on plan of care and expected duration. Pain level reassessed. Patient is alert, oriented x 3, equal unlabored respirations, skin warm/dry/pink. Vital Signs: 15:14 BP 147 / 88; Pulse 88; Resp 20; Temp 97.8; Pulse Ox 97% ; Weight 113.85 kg; Height 5 sv ft. 10 in. (177.80 cm); Pain 4/10; 15:14 Body Mass Index 36.01 (113.85 kg, 177.80 cm) sv ED Course: 15:05 Patient arrived in ED. mr 15:14 Triage completed. sv 15:15 Arm band placed on. sv 15:15 Bed in low position. Call light in reach. Adult w/ patient. tw2 15:16 Teresa Dodson RN is Primary Nurse. tw2 15:38 Vitaly Perrin PA is PHCP. [facility] 15:38 Joey Breen MD is Attending Physician. [facility] 16:44 No provider procedures requiring assistance completed. Patient did not have IV access ae4 during this emergency room visit. Dressings: Kerlix non-adherent dressing x 1 lateral aspect of left calf and left calf. 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 Exp: ae4 05/04/2020. Lot #: [id number]. } Route: IM; Site: left deltoid; 16:45 Follow up: Response: No adverse reaction tw2 Outcome: 16:32 Discharge ordered by . jerardo 16:45 Discharged to home ambulatory, with significant other. ae4 16:45 Condition: stable 16:45 Discharge instructions given to patient, Instructed on discharge instructions, follow up and referral plans. Demonstrated understanding of instructions, follow-up care, wound care. 16:45 Patient left the ED. ae4 Signatures: Francia Archibald, RN Vitaly Tang PA PA jmm Rivera, Mary mr Teresa Dodson RN RN tw2 Sheldon Moyer RN RN ae4
--- NOTE | 2018-08-04 16:32 | EDPHYS ---
Physician Documentation [facility] Name: Doe Heml Age: 68 yrs Sex: Male : 1950 Arrival Date: 08/04/2018 Time: 15:05 Bed 5 Private MD: ED Physician Joey Breen HPI: 08/04 15:42 This 68 yrs old Male presents to ER via Ambulatory with complaints of jmm Laceration To Leg. 15:42 Onset: The symptoms/episode began/occurred acutely, just prior to arrival. This is a 68 jmm year old male with a history of htn that presents to the ED with a laceration to his left lower leg. Patient states he was propping his foot against a hose clamp which broke off and scraped his left leg. Patient does not have concerns for foreign body bodies. Patient states the wound was not exposed to water. Patient is not UTD on tetanus immunizations. . Historical: - Allergies: 15:14 No Known Allergies; sv - PMHx: 15:14 Hypertension; Arthritis; sv - PSHx: 15:14 shoulder; sv - Immunization history:: Last tetanus immunization: < 10 years ago unknown. - Social history:: Smoking status: . - Ebola Screening: : Patient denies travel to an Ebola-affected area in the 21 days before illness onset. ROS: 15:42 Constitutional: Negative for fever, chills, and weight loss, Cardiovascular: Negative jmm for chest pain, palpitations, and edema, Respiratory: Negative for shortness of breath, cough, wheezing, and pleuritic chest pain. 15:42 MS/extremity: Positive for injury or acute deformity, laceration. 15:42 All other systems are negative. Exam: 15:42 Head/Face: atraumatic. Eyes: EOMI, no conjunctival erythema appreciated ENT: Moist jmm Mucus Membranes Neck: Trachea midline, Supple Chest/axilla: Normal chest wall appearance and motion. Cardiovascular: Regular rate and rhythm. No edema appreciated Respiratory: Normal respirations, no respiratory distress appreciated Abdomen/GI: Non distended, soft Back: Normal ROM 15:42 Constitutional: The patient appears in no acute distress, alert, awake. 15:42 Skin: injury, laceration(s), the wound is approximately 5 cm(s). 15:42 Neuro: Orientation: is normal, Mentation: is normal, Memory: is normal. 15:42 Psych: Behavior/mood is pleasant, cooperative. Vital Signs: 15:14 BP 147 / 88; Pulse 88; Resp 20; Temp 97.8; Pulse Ox 97% ; Weight 113.85 kg; Height 5 sv ft. 10 in. (177.80 cm); Pain 4/10; 15:14 Body Mass Index 36.01 (113.85 kg, 177.80 cm) sv Laceration: 15:42 Wound Repair of 5cm ( 2.0in ) subcutaneous laceration to lateral aspect of left calf. jmm Distal neuro/vascular/tendon intact. Anesthesia: Local anesthetic administered with 10 mls of 1% lidocaine. Wound prep: Moderate cleansing with betadine by me. Skin closed with 9 4-0 Prolene using simple sutures and sterile technique. Patient tolerated well. MDM: 15:42 Patient medically screened. [facility] 16:31 Data reviewed: vital signs, nurses notes. Counseling: I had a detailed discussion with jerardo the patient and/or guardian regarding: the historical points, exam findings, and any diagnostic results supporting the discharge/admit diagnosis, the need for outpatient follow up, to return to the emergency department if symptoms worsen or persist or if there are any questions or concerns that arise at home. ED course: No fb visualized. Patient is given wound infection return precautions. patient was otherwise given strict return precautions. patient understood and agrees with the plan of care. . 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 Exp: ae4 05/04/2020. Lot #: [id number]. } Route: IM; Site: left deltoid; 16:45 Follow up: Response: No adverse reaction tw2 Disposition: 08/05 07:39 Co-signature as Attending Physician, Joey Breen MD I agree with the assessment and kdr plan of care. Disposition: 08/04/18 16:32 Discharged to Home. Impression: Laceration of the Left Lower Leg. - Condition is Stable. - Discharge Instructions: Laceration Care, Adult. - Medication Reconciliation Form, Thank You Letter, Antibiotic Education, Prescription Opioid Use form. - Follow up: Private Physician; When: 7 - 10 days; Reason: Recheck today's complaints, Continuance of care, Staple/Suture removal, Re-evaluation by your physician. Signatures: Francia Archibald, RN RN Joey Peoples MD MD kdr Mickail, Joel, PA PA jmm Wise, Tara, RN RN tw2 Sheldon Moyer RN RN ae4 Corrections: (The following items were deleted from the chart) 08/04 16:45 16:32 08/04/2018 16:32 Discharged to Home. Impression: Laceration of the Left Lower ae4 Leg. Condition is Stable. Forms are Medication Reconciliation Form, Thank You Letter, Antibiotic Education, Prescription Opioid Use. Follow up: Private Physician; When: 7 - 10 days; Reason: Recheck today's complaints, Continuance of care, Staple/Suture removal, Re-evaluation by your physician. jerardo
== END 2018-08-04 16:45 | disposition home or self-care (01) ==
LOC: ER 15:03
PROC: 0JQP0ZZ Repair Left Lower Leg Subcutaneous Tissue and Fascia, Open Approach (ICD-10-PCS; principal; 2018-08-04)
DX: S81.812A Laceration without foreign body, left lower leg, initial encounter (principal); W22.8XXA Striking against or struck by other objects, initial encounter; Y93.9 Activity, unspecified; Y92.9 Unspecified place or not applicable; Z23 Encounter for immunization; I10 Essential (primary) hypertension
CPT/HCPCS: 90471; 90714; 99283